=== PATIENT | male | born 1960 ===

== ENCOUNTER 2023-12-13 08:58 | Observation (INO) ==
[2023-12-13] MEDS ORDERED: IOPAMIDOL 100 ML BOTTLE IV ONE (08:59)
[2023-12-13 10:03] LABS: Basophils # (Auto) 0.04 K/mcL (0.00-0.30); Basophils % (Auto) 0.3 % (0.0-2.0); Eosinophils # (Auto) 0.05 K/mcL (0.00-0.70); Eosinophils % (Auto) 0.3 % (0.0-7.0); Hematocrit 42.5 % (40.1-51.0); Lymphocytes # (Auto) 1.88 K/mcL (1.50-4.80); Lymphocytes % (Auto) 11.8 % (15.5-49.0); Mean Cell Volume 96.6 fL (80.0-100.0); Mean Corpuscular HGB Conc 32.9 g/dL (31.0-36.0); Mean Platelet Volume 9.6 fL (8.8-12.5); Monocytes # (Auto) 1.54 K/mcL (0.10-0.90); Monocytes % (Auto) 9.6 % (1.0-12.0); Neutrophils % (Auto) 77.6 % (38.0-78.0); Platelet Count 211 K/mcL (140-440)
[2023-12-13 10:22] LABS: Blood Urea Nitrogen 13 mg/dL (8-23); Carbon Dioxide 21 mmol/L (22-30); Chloride 94 mmol/L (96-108); Glomerular Filtration Rate 101; Glucose 111 mg/dL (70-105); Sodium 131 mmol/L (133-145)
[2023-12-13] MEDS: KETOROLAC 30 MG/ML VIAL IV ONE (10:37)
[2023-12-13] MEDS: MAGNESIUM SULFATE 2 GM/50 ML BAG IV ONE (10:38)
[2023-12-13] MEDS: PIPERACILLIN SODIUM/TAZOBACTAM 3.375 GM in DEXTROSE 5% IN WATER 50 ML IV ONE (11:07)
[2023-12-13] MEDS: fentaNYL 100 MCG/2 ML VIAL IV ONE (12:12)
[2023-12-13] MEDS: NICOTINE 21 MG PATCH TOPICAL ONE (12:52)
[2023-12-13] MEDS ORDERED: HYDROmorphone 0.5 MG/0.5 ML SYRINGE IV PRN (14:55)
[2023-12-13] MEDS ORDERED: ONDANSETRON 4 MG/2 ML VIAL IV PRN (14:55)
[2023-12-13] MEDS ORDERED: NICOTINE POLACRILEX 2 MG GUM CHEW/PARK PRN (14:55)
[2023-12-13] MEDS ORDERED: HYDROcodone/APAP 5/325MG TABLET PO PRN (14:55)
[2023-12-13] MEDS ORDERED: KETOROLAC 15 MG/ML VIAL IV PRN (14:55)
[2023-12-13] MEDS: NICOTINE 21 MG PATCH TOPICAL SCH (17:22)
[2023-12-13] MEDS: metroNIDAZOLE 500 MG/100 ML BAG IV SCH ×2 (17:34→18:56)
[2023-12-13] MEDS: cefTRIAXone 2 GM in DEXTROSE 5% IN WATER 50 ML IV SCH (17:35)
[2023-12-13] MEDS: 0.9 % SODIUM CHLORIDE 10 ML SYRINGE IV SCH (17:35)
[2023-12-13] MEDS: cefTRIAXone 2 GM VIAL IM SCH (18:57)
[2023-12-13] MEDS: SENNOSIDES 1 TABLET PO SCH (20:57)
[2023-12-13] MEDS: DOCUSATE SODIUM 100 MG CAPSULE PO SCH (20:57)
[2023-12-13] MEDS: ACETAMINOPHEN 500 MG TABLET PO PRN (22:27)
[2023-12-14 06:29] LABS: ALT/SGPT 15 U/L (<40); AST/SGOT 28 U/L (<40); Albumin 3.5 gm/dL (3.2-5.2); Albumin/Globulin Ratio 0.9 (1.0-2.3); Alkaline Phosphatase 92 U/L (39-117); Bilirubin,Direct 0.3 mg/dL (<0.3); Bilirubin,Total 0.6 mg/dL (0.1-1.0); Blood Urea Nitrogen 14 mg/dL (8-23); Calcium 9.1 mg/dL (8.6-10.4); Carbon Dioxide 24 mmol/L (22-30); Chloride 100 mmol/L (96-108); Globulin 3.8 gm/dL (2.2-3.7); Glomerular Filtration Rate 108; Glucose 113 mg/dL (70-105); Lactate Dehydrogenase 98 U/L (135-225); Phosphorous 3.4 mg/dL (2.5-4.5); Potassium 4.2 mmol/L (3.3-5.1); Sodium 136 mmol/L (133-145); Triglycerides 137 mg/dL (<150)
[2023-12-14 06:37] LABS: Basophils # (Auto) 0.04 K/mcL (0.00-0.30); Basophils % (Auto) 0.4 % (0.0-2.0); Eosinophils # (Auto) 0.14 K/mcL (0.00-0.70); Eosinophils % (Auto) 1.3 % (0.0-7.0); Hematocrit 41.2 % (40.1-51.0); Hemoglobin 13.7 g/dL (13.7-17.5); Lymphocytes # (Auto) 1.58 K/mcL (1.50-4.80); Mean Cell Volume 96.3 fL (80.0-100.0); Mean Corpuscular HGB Conc 33.3 g/dL (31.0-36.0); Mean Platelet Volume 10.1 fL (8.8-12.5); Monocytes % (Auto) 7.6 % (1.0-12.0); Neutrophils % (Auto) 75.4 % (38.0-78.0); Platelet Count 217 K/mcL (140-440); RBC 4.28 M/mcL (4.63-6.08); Red Cell Distribution Width 12.9 % (11.5-14.5); WBC 10.5 K/mcL (4.5-11.0)
[2023-12-14] MEDS: ENOXAPARIN 40 MG/0.4 ML SYRINGE SQ SCH (10:07)
[2023-12-14] MEDS: CALCIUM CARBONATE 500 MG TAB.CHEW CHEWED PRN (22:09)
[2023-12-15 05:41] LABS: Basophils # (Auto) 0.05 K/mcL (0.00-0.30); Basophils % (Auto) 0.5 % (0.0-2.0); Eosinophils # (Auto) 0.19 K/mcL (0.00-0.70); Eosinophils % (Auto) 1.9 % (0.0-7.0); Hematocrit 40.6 % (40.1-51.0); Hemoglobin 13.2 g/dL (13.7-17.5); Lymphocytes # (Auto) 1.99 K/mcL (1.50-4.80); Lymphocytes % (Auto) 19.4 % (15.5-49.0); Mean Cell Volume 98.3 fL (80.0-100.0); Mean Corpuscular HGB Conc 32.5 g/dL (31.0-36.0); Mean Platelet Volume 9.8 fL (8.8-12.5); Monocytes # (Auto) 0.81 K/mcL (0.10-0.90); Monocytes % (Auto) 7.9 % (1.0-12.0); Platelet Count 244 K/mcL (140-440); RBC 4.13 M/mcL (4.63-6.08); WBC 10.3 K/mcL (4.5-11.0)
[2023-12-15 06:23] LABS: ALT/SGPT 16 U/L (<40); AST/SGOT 30 U/L (<40); Albumin 3.3 gm/dL (3.2-5.2); Alkaline Phosphatase 106 U/L (39-117); Bilirubin,Direct 0.2 mg/dL (<0.3); Bilirubin,Total 0.3 mg/dL (0.1-1.0); Blood Urea Nitrogen 13 mg/dL (8-23); Calcium 9.4 mg/dL (8.6-10.4); Carbon Dioxide 27 mmol/L (22-30); Chloride 101 mmol/L (96-108); Globulin 3.4 gm/dL (2.2-3.7); Glomerular Filtration Rate 101; Glucose 122 mg/dL (70-105); Lactate Dehydrogenase 95 U/L (135-225); Phosphorous 4.7 mg/dL (2.5-4.5); Potassium 4.3 mmol/L (3.3-5.1); Sodium 138 mmol/L (133-145); Triglycerides 104 mg/dL (<150)
== END 2023-12-15 11:35 | disposition home or self-care (01) ==
LOC: MEDSUR 08:58 → ED 08:58 → INTOOBSV 14:45 → OBSVTOIN 14:45 → MEDSUR 15:07
PROVIDERS: ADMIT Internal Medicine; ATTEND Internal Medicine

== ENCOUNTER 2024-01-17 06:15 | Observation (INO) ==
[2024-01-16 10:52] LABS: Basophils # (Auto) 0.07 K/mcL (0.00-0.30); Basophils % (Auto) 0.6 % (0.0-2.0); Eosinophils # (Auto) 0.18 K/mcL (0.00-0.70); Eosinophils % (Auto) 1.5 % (0.0-7.0); Hematocrit 48.8 % (40.1-51.0); Hemoglobin 15.9 g/dL (13.7-17.5); Lymphocytes % (Auto) 20.6 % (15.5-49.0); Mean Corpuscular HGB Conc 32.6 g/dL (31.0-36.0); Mean Platelet Volume 8.9 fL (8.8-12.5); Monocytes # (Auto) 0.83 K/mcL (0.10-0.90); Monocytes % (Auto) 6.9 % (1.0-12.0); Neutrophils % (Auto) 70.2 % (38.0-78.0); Platelet Count 232 K/mcL (140-440); RBC 5.03 M/mcL (4.63-6.08); Red Cell Distribution Width 14.4 % (11.5-14.5); WBC 12.1 K/mcL (4.5-11.0)
[2024-01-16 11:04] LABS: Prothrombin Time 13.4 sec (11.9-14.5)
[2024-01-16 11:12] LABS: ALT/SGPT 42 U/L (<40); AST/SGOT 43 U/L (<40); Albumin 4.5 gm/dL (3.2-5.2); Albumin/Globulin Ratio 1.3 (1.0-2.3); Alkaline Phosphatase 97 U/L (39-117); Bilirubin,Total 0.8 mg/dL (0.1-1.0); Blood Urea Nitrogen 6 mg/dL (8-23); Calcium 9.8 mg/dL (8.6-10.4); Carbon Dioxide 25 mmol/L (22-30); Chloride 99 mmol/L (96-108); Globulin 3.6 gm/dL (2.2-3.7); Glomerular Filtration Rate 101; Glucose 93 mg/dL (70-105); Potassium 4.3 mmol/L (3.3-5.1); Sodium 137 mmol/L (133-145)
[2024-01-17] MEDS ORDERED: KETAMINE 50 MG/ML Syringe IV ONE (06:59)
[2024-01-17] MEDS ORDERED: GLYCOPYRROLATE 0.2 MG/ML VIAL IV ONE (06:59)
[2024-01-17] MEDS ORDERED: ONDANSETRON 4 MG/2 ML VIAL ONE (06:59)
[2024-01-17] MEDS ORDERED: fentaNYL 100 MCG/2 ML VIAL ONE (06:59)
[2024-01-17] MEDS ORDERED: DEXAMETHASONE 10 MG/ML VIAL ONE (06:59)
[2024-01-17] MEDS ORDERED: SUGAMMADEX SODIUM 200 MG/2 ML VIAL IV ONE (06:59)
[2024-01-17] MEDS ORDERED: MAGNESIUM SULFATE 2 GM/50 ML BAG IV ONE (06:59)
[2024-01-17] MEDS ORDERED: PROPOFOL 200 MG/20 ML VIAL IV ONE (06:59)
[2024-01-17] MEDS: PIPERACILLIN SODIUM/TAZOBACTAM 3.375 GM in DEXTROSE 5% IN WATER 50 ML IV SCH (07:13)
[2024-01-17] MEDS ORDERED: LIDOCAINE 2% PF 5 ML VIAL ONE (07:29)
[2024-01-17] MEDS ORDERED: fentaNYL 100 MCG/2 ML VIAL IV PRN ×2 (07:52→08:10)
[2024-01-17] MEDS ORDERED: ONDANSETRON 4 MG/2 ML VIAL IV PRN (07:52)
[2024-01-17] MEDS ORDERED: IPRATROPIUM/ALBUTEROL 3 ML AMPUL.NEB NEB PRN (07:52)
[2024-01-17] MEDS ORDERED: PHENYLephrine 1 MG/10 ML SYRINGE (ANEST) ONE (08:01)
[2024-01-17] MEDS: LACTATED RINGERS 1,000 ML IV SCH (08:54)
[2024-01-17] MEDS: oxyCODONE IR 5 MG TABLET PO PRN (09:30)
[2024-01-17] MEDS: PIPERACILLIN SODIUM/TAZOBACTAM 3.375 GM in DEXTROSE 5% IN WATER 100 ML IV SCH (11:22)
[2024-01-18 06:06] LABS: Basophils # (Auto) 0.02 K/mcL (0.00-0.30); Basophils % (Auto) 0.1 % (0.0-2.0); Eosinophils # (Auto) 0.02 K/mcL (0.00-0.70); Eosinophils % (Auto) 0.1 % (0.0-7.0); Hematocrit 47.6 % (40.1-51.0); Hemoglobin 15.5 g/dL (13.7-17.5); Lymphocytes # (Auto) 1.99 K/mcL (1.50-4.80); Lymphocytes % (Auto) 11.3 % (15.5-49.0); Mean Cell Volume 96.7 fL (80.0-100.0); Mean Corpuscular HGB Conc 32.6 g/dL (31.0-36.0); Mean Platelet Volume 9.3 fL (8.8-12.5); Monocytes # (Auto) 0.99 K/mcL (0.10-0.90); Monocytes % (Auto) 5.6 % (1.0-12.0); Neutrophils % (Auto) 82.5 % (38.0-78.0); Platelet Count 224 K/mcL (140-440); RBC 4.92 M/mcL (4.63-6.08); Red Cell Distribution Width 14.1 % (11.5-14.5); WBC 17.7 K/mcL (4.5-11.0)
[2024-01-19 06:33] LABS: Basophils # (Auto) 0.06 K/mcL (0.00-0.30); Basophils % (Auto) 0.5 % (0.0-2.0); Eosinophils # (Auto) 0.18 K/mcL (0.00-0.70); Eosinophils % (Auto) 1.5 % (0.0-7.0); Hematocrit 46.6 % (40.1-51.0); Hemoglobin 14.8 g/dL (13.7-17.5); Lymphocytes # (Auto) 3.73 K/mcL (1.50-4.80); Mean Cell Volume 99.1 fL (80.0-100.0); Mean Corpuscular HGB Conc 31.8 g/dL (31.0-36.0); Mean Platelet Volume 9.5 fL (8.8-12.5); Monocytes # (Auto) 0.58 K/mcL (0.10-0.90); Neutrophils % (Auto) 60.9 % (38.0-78.0); Platelet Count 204 K/mcL (140-440); Red Cell Distribution Width 14.2 % (11.5-14.5); WBC 11.7 K/mcL (4.5-11.0)
== END 2024-01-19 15:00 | disposition home or self-care (01) ==
LOC: SUR 06:15 → MEDSUR 08:43 → INTOOBSV 01-18 12:00
PROVIDERS: ADMIT Family Medicine Adult Medicine; ATTEND Family Medicine Adult Medicine